=== PATIENT | male | born 1985 | race Caucasian/White ===

== ENCOUNTER 2017-12-01 06:36 | Emergency (ER) | payer OTHER ==
[~2017-12-01] VITALS: Ht 165.1 cm; Wt 74.4 kg
[~2017-12-01 06:36] MED LIST: DOXY100C2 PO; NAPR-243 PO; [UNRECOGNIZED DRUG - REMARK]
--- OUTSIDE RECORDS SUMMARY | 2017-12-01 06:42 | XMS REPORT | Continuity of Care Document ---
Author Author [facility] [place] Address Unknown Phone Unavailable Allergies Active Description Code Type Severity Reaction Onset Reported/Identified Relationship to Patient Clinical Status Yes Augmentin Drug Allergy N/A N/A 12/31/2008 Yes lidocaine Drug Allergy N/A N/A 12/31/2008 Yes Penicillins Drug Allergy N/A N/A 12/31/2008 Yes Augmentin Drug Allergy 12/31/2008 Yes lidocaine Drug Allergy 12/31/2008 Yes Penicillins Drug Allergy 12/31/2008 Yes Amoxicillin Drug Allergy N/A N/A 03/13/2014 Medications There is no data. 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 Encounters ACCT No. Visit Date/Time Discharge Status Pt. Type Provider Facility Loc./Unit Complaint [id number] 03/13/2014 11:46:00 03/13/2014 23:59:59 CLS Outpatient BRUCE RITTER APRN [id number] 02/28/2012 11:36:00 02/28/2012 23:59:59 CLS Outpatient
--- OUTSIDE RECORDS SUMMARY | 2017-12-01 06:42 | XMS REPORT | Clinical Summary ---
Author Author [facility] Organization [facility] Address Unknown Phone Unavailable Care Team Providers Care Compass Operator Name Role Phone Doctor, Miscellaneous Unavailable Unavailable Vito Rm MD Unavailable Elvia Correa DO PCP Spencer Moses MD Unavailable Michael Goff MD Unavailable Source Comments Some departments are not documenting in the electronic medical record. If you do not see the information that you expected, contact Release of Information in the Health Information Management department at [phone] for further assistance in locating additional records.[facility] Allergies Active Allergy Reactions Severity Noted Date Comments Amoxicillin-Pot RASH Medium 01/04/2012 Clavulanate Lidocaine RASH Medium 01/04/2012 Penicillins RASH Medium 01/04/2012 Current Medications Prescription Sig. Disp. Refills Start End Date Status Date traMADol (ULTRAM) 50 mg Take 1 Tab by mouth every 30 Tab 0 03/25/20 Active tablet 4 hours as needed for 16 Pain for up to 30 doses. 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 Quit 3 years ago. Sex Assigned at Date Recorded Not on file Last Filed Vital Signs Vital Sign Reading Time Taken Blood Pressure 114/83 03/25/2016 10:45 AM CDT Pulse 98 03/25/2016 10:45 AM CDT Temperature 36.5 C (97.7 F) 03/25/2016 10:45 AM CDT Respiratory Rate - - Oxygen Saturation 96% 03/25/2016 10:45 AM CDT Inhaled Oxygen - - Concentration Weight 72.6 kg (160 lb) 03/23/2016 6:08 PM CDT Height 167.6 cm (5' 6") 03/23/2016 6:08 PM CDT Body Mass Index 25.82 03/23/2016 6:08 PM CDT Plan of Treatment Health Maintenance Due Date Last Done Comments PHYSICAL (COMPREHENSIVE) 12/20/1990 EXAM PERTUSSIS VACCINE 12/20/1994 TETANUS VACCINE 12/20/2000 INFLUENZA VACCINE 04/26/2018 Results Not on filefrom Last 3 Months
--- OUTSIDE RECORDS SUMMARY | 2017-12-01 06:42 | XMS REPORT ---
Author KRISS Heck [facility] [employer] Address Unknown Phone Unavailable Care Team Providers Care Senior Software Analyst Name Role Phone KRISS KNIGHT CP Unavailable Allergies No Known Allergies Problems Problem Type Condition Code Onset Dates Condition Status Problem Hx of hemolytic anemia Z86.2 Active Problem Iron overload syndrome E83.19 Active Problem Pyruvate kinase deficiency D55.8 Active Problem Calculus of gallbladder without mention of cholecystitis or obstruction 574.20 Active Medications No Known Medications Results No Known Results Summary Purpose eClinicalWorks Submission
[2017-12-01 07:31] LABS: CLARITY,URINE CLEAR; COLOR,URINE AMBER; GLUCOSE, URINE (UA) NEGATIVE (NEGATIVE); KETONES,URINE NEGATIVE (NEGATIVE); LEUKOCYTE ESTERASE ,URINE 1+ (NEGATIVE); NITRITE,URINE NEGATIVE (NEGATIVE); PH,URINE 6 (5-9); PROTEIN,URINE NEGATIVE (NEGATIVE); UROBILINOGEN,URINE 1 MG/DL (NORMAL)
--- NOTE | 2017-12-01 07:35 | ED General ---
General Chief Complaint: Eye Problems Stated Complaint: HAVING TROUBLE SEEING Nursing Triage Note: double vision Nursing Sepsis Screen: No Definite Risk Source of Information: Patient Exam Limitations: No Limitations History of Present Illness Date Seen by Provider: Dec 01, 2017 Time Seen by Provider: 07:35 Initial Comments The patient is a 31-year-old white male who presents with complaints of visual aberration. An example of that would be seeing chairs moving up and down. He was seen to walk in to the ER. He had a wide-based gait and seemed unsteady. His mother offered a guiding hand. He reports that if he closes either eye he does not see the double vision. Timing/Duration: 1-3 Hours, Other Allergies and Home Medications Allergies Coded Allergies: amoxicillin (Unverified Allergy, Intermediate, 12/31/08) lidocaine (Unverified Allergy, Intermediate, 12/31/08) potassium clavulanate (Unverified Allergy, Intermediate, 12/31/08) Penicillins (Unverified Allergy, Mild, 12/31/08) Home Medications No Active Prescriptions or Reported Meds Patient Home Medication List Home Medication List Reviewed: Yes Constitutional: see HPI, chills EENTM: no symptoms reported Respiratory: no symptoms reported Cardiovascular: no symptoms reported Gastrointestinal: no symptoms reported Genitourinary: no symptoms reported Musculoskeletal: no symptoms reported Skin: no symptoms reported Psychiatric/Neurological: No Symptoms Reported Hematologic/Lymphatic: Other (Pyruvate kinase deficiency) Immunological/Allergic: no symptoms reported Past Xwabjye-Xkhjuw-Ziprig Hx Patient Social History Alcohol Use: Denies Use Recreational Drug Use: Yes (cannibus) Smoking Status: Current Everyday Smoker Type Used: Cigarettes 2nd Hand Smoke Exposure: Yes Recent Foreign Travel: No Contact w/Someone Who Travel: No Recent Infectious Disease Expo: No Recent Hopitalizations: No Surgeries History of Surgeries: Yes (EGD, SPLEENECTOMY) Surgeries: Gallbladder Respiratory History of Respiratory Disorde: No Cardiovascular History of Cardiac Disorders: No Neurological History of Neurological Disord: No Reproductive System Hx Reproductive Disorders: No Genitourinary History of Genitourinary Disor: No Gastrointestinal History of Gastrointestinal Di: No Musculoskeletal History of Musculoskeletal Dis: No Endocrine History of Endocrine Disorders: Yes (pyruvate kinase deficiency) HEENT History of HEENT Disorders: No Cancer History of Cancer: No Psychosocial History of Psychiatric Problem: No Integumentary History of Skin or Integumenta: No Blood Transfusions History of Blood Disorders: Yes (chronic anemia, pyruvate kinase deficiency) Family Medical History Significant Family History: No Pertinent Family Hx Physical Exam Vital Signs Vital Signs - First Documented 12/01/17 06:50 Temp 97.7 Pulse 118 Resp 18 B/P (MAP) 141/104 (116) Pulse Ox 99 O2 Delivery Room Air Capillary Refill : Less Than 3 Seconds General Appearance: No Apparent Distress, WD/WN Eyes: Bilateral Eye Other (pupils equal and normal tracking) HEENT: Normal ENT Inspection Neck: Full Range of Motion, Normal Inspection, Non Tender, Supple, Carotid Bruit Respiratory: Chest Non Tender, Lungs Clear, Normal Breath Sounds, No Accessory Muscle Use, No Respiratory Distress Cardiovascular: Regular Rate, Rhythm, No Edema, No Gallop, No JVD, No Murmur, Normal Peripheral Pulses Neurologic/Psychiatric: Alert, Oriented x3, No Motor/Sensory Deficits, Normal Mood/Affect, industrial spraypainter II-XII Norm as Tested, Other (DYPLOPIA is corrected by occluding either eye) Skin: Normal Color Lymphatic: No Adenopathy Progress/Results/Core Measures Suspected Sepsis Recent Fever Within 48 Hours: No Infection Criteria Present: None New/Unexplained Altered Menta: No Sepsis Screen: No Definite Risk Sepsis Diagnosis: SIRS Temperature:97.7 Pulse: 118 Respiratory Rate: 18 Laboratory Tests 12/01/17 07:53: White Blood Count 14.6H Blood Pressure 141 /104 Mean: 116 Laboratory Tests 12/01/17 07:53: Creatinine 0.65, Platelet Count 628H, Total Bilirubin 5.0H Results/Orders Lab Results Laboratory Tests Test 12/01/17 07:22 12/01/17 07:53 Range/Units Urine Color CHITO H Urine Clarity CLEAR Urine pH 6 5-9 Urine Specific [place] 1.015 L 1.016-1.022 Urine Protein NEGATIVE NEGATIVE Urine Glucose (UA) NEGATIVE NEGATIVE Urine Ketones NEGATIVE NEGATIVE Urine Nitrite NEGATIVE NEGATIVE Urine Bilirubin 1+ H NEGATIVE Urine Urobilinogen 1 NORMAL MG/DL Urine Leukocyte Esterase 1+ H NEGATIVE Urine RBC (Auto) 1+ H NEGATIVE Urine RBC 0-2 /HPF Urine WBC 0-2 /HPF Urine Squamous Epithelial Cells NONE /HPF Urine Crystals NONE /LPF Urine Bacteria NEGATIVE /HPF Urine Casts NONE /LPF Urine Mucus MODERATE H /LPF Urine Culture Indicated NO Urine Opiates Screen POSITIVE H NEGATIVE Urine Oxycodone Screen NEGATIVE NEGATIVE Urine Methadone Screen NEGATIVE NEGATIVE Urine Propoxyphene Screen NEGATIVE NEGATIVE Urine Barbiturates Screen NEGATIVE NEGATIVE Ur Tricyclic Antidepressants Screen NEGATIVE NEGATIVE Urine Phencyclidine Screen NEGATIVE NEGATIVE Urine Amphetamines Screen NEGATIVE NEGATIVE Urine Methamphetamines Screen NEGATIVE NEGATIVE Urine Benzodiazepines Screen NEGATIVE NEGATIVE Urine Cocaine Screen NEGATIVE NEGATIVE Urine Cannabinoids Screen POSITIVE H NEGATIVE White Blood Count 14.6 H 4.3-11.0 10^3/uL Red Blood Count 2.37 L 4.35-5.85 10^6/uL Hemoglobin 9.1 L 13.3-17.7 G/DL Hematocrit 28 L 40-54 % Mean Corpuscular Volume 119 H 80-99 FL Mean Corpuscular Hemoglobin 38 H 25-34 PG Mean Corpuscular Hemoglobin Concent 32 32-36 G/DL Red Cell Distribution Width 13.9 10.0-14.5 % Platelet Count 628 H 130-400 10^3/uL Mean Platelet Volume 9.1 7.4-10.4 FL Neutrophils (%) (Auto) 41 L 42-75 % Lymphocytes (%) (Auto) 39 12-44 % Monocytes (%) (Auto) 14 H 0-12 % Eosinophils (%) (Auto) 5 0-10 % Basophils (%) (Auto) 0 0-10 % Neutrophils # (Auto) 6.0 1.8-7.8 X 10^3 Lymphocytes # (Auto) 5.7 H 1.0-4.0 X 10^3 Monocytes # (Auto) 2.1 H 0.0-1.0 X 10^3 Eosinophils # (Auto) 0.7 H 0.0-0.3 10^3/uL Basophils # (Auto) 0.1 0.0-0.1 10^3/uL Neutrophils % (Manual) 42 % Lymphocytes % (Manual) 44 % Monocytes % (Manual) 6 % Eosinophils % (Manual) 5 % Basophils % (Manual) 0 % Metamyelocytes % 3 % Band Neutrophils 0 % Nucleated Red Blood Cells 3 Polychromasia MARKED Hypochromasia SLIGHT Macrocytosis MARKED Target Cells MODERATE Ki Cells MODERATE Sodium Level 138 135-145 MMOL/L Potassium Level 3.8 3.6-5.0 MMOL/L Chloride Level 109 H 98-107 MMOL/L Carbon Dioxide Level 24 21-32 MMOL/L Anion Gap 5 5-14 MMOL/L Blood Urea Nitrogen 10 7-18 MG/DL Creatinine 0.65 0.60-1.30 MG/DL Estimat Glomerular Filtration Rate > 60 BUN/Creatinine Ratio 15 Glucose Level 98 70-105 MG/DL Calcium Level 8.6 8.5-10.1 MG/DL Total Bilirubin 5.0 H 0.1-1.0 MG/DL Aspartate Amino Transf (AST/SGOT) 30 5-34 U/L Alanine Aminotransferase (ALT/SGPT) 55 0-55 U/L Alkaline Phosphatase 79 40-136 U/L Total Protein 6.7 6.4-8.2 GM/DL Albumin 4.1 3.2-4.5 GM/DL Serum Alcohol < 10 <10 MG/DL My Orders Orders - QUINN CLEVELAND MD Cbc With Automated Diff (12/01/17 06:59) Comprehensive Metabolic Panel (12/01/17 06:59) Drug Screen Stat (Urine) (12/01/17 06:59) Ua Culture If Indicated (12/01/17 06:59) Alcohol (12/01/17 07:44) Manual Differential (12/01/17 07:53) Ct Head Wo (12/01/17 08:50) Vital Signs/I&O Vital Sign - Last 12Hours 12/01/17 06:50 Temp 97.7 Pulse 118 Resp 18 B/P (MAP) 141/104 (116) Pulse Ox 99 O2 Delivery Room Air Capillary Refill : Less Than 3 Seconds Blood Pressure Mean: 116 Departure Communication (Admissions) Progress Notes ct SCAN SHOWED NO ABNORMALITIES. Impression Impression: Primary Impression: Diplopia Disposition: 01 HOME, SELF-CARE Condition: Stable/Unchanged Departure-Patient Inst. Decision time for Depature: 09:37 Referrals: KRISS KNIGHT DO (PCP/Family) Primary Care Physician Add. Discharge Instructions: All discharge instructions reviewed with patient and/or family. Voiced understanding. Occluded one EYE for the purposes of walking and safety. See an middle school football coach for eye exam and further advise Scripts No Active Prescriptions or Reported Meds QUINN CLEVELAND MD Dec 01, 2017 07:35
[2017-12-01 07:43] LABS: AMPHETAMINE SCREEN, URINE NEGATIVE (NEGATIVE); BARBITURATE SCREEN URINE NEGATIVE (NEGATIVE); BENZODIAZEPINES SCREEN URINE NEGATIVE (NEGATIVE); CANNABINOID SCREEN, URINE POSITIVE (NEGATIVE); COCAINE SCREEN URINE NEGATIVE (NEGATIVE); METHADONE STAT NEGATIVE (NEGATIVE); METHAMPHETAMINE SCREEN URINE S NEGATIVE (NEGATIVE); OPIATE SCREEN URINE POSITIVE (NEGATIVE); OXYCODONE STAT NEGATIVE (NEGATIVE); PROPOXYPHENE STAT NEGATIVE (NEGATIVE); TRICYCLIC ANTIDEPRESSANTS SCRE NEGATIVE (NEGATIVE)
[2017-12-01 07:49] LABS: BACTERIA,URINE NEGATIVE /HPF; BILIRUBIN,URINE 1+ (NEGATIVE); RBC,URINE 0-2 /HPF; WBC,URINE 0-2 /HPF
[2017-12-01 08:04] LABS: BASOPHILS # (AUTO) 0.1 10^3/uL (0.0-0.1); BASOPHILS % (AUTO) 0 % (0-10); EOSINOPHILS # (AUTO) 0.7 10^3/uL (0.0-0.3); EOSINOPHILS % (AUTO) 5 % (0-10); HEMATOCRIT 28 % (40-54); HEMOGLOBIN 9.1 G/DL (13.3-17.7); LYMPHOCYTES # (AUTO) 5.7 X 10^3 (1.0-4.0); LYMPHOCYTES % (AUTO) 39 % (12-44); MEAN CORPUSCULAR HEMOGLOBIN 38 PG (25-34); MEAN CORPUSCULAR HGB CONC 32 G/DL (32-36); MEAN CORPUSCULAR VOLUME 119 FL (80-99); MEAN PLATELET VOLUME 9.1 FL (7.4-10.4); MONOCYTES # (AUTO) 2.1 X 10^3 (0.0-1.0); MONOCYTES % (AUTO) 14 % (0-12); NEUTROPHILS % (AUTO) 41 % (42-75); PLATELET COUNT 628 10^3/uL (130-400); RED BLOOD COUNT 2.37 10^6/uL (4.35-5.85); RED CELL DISTRIBUTION WIDTH 13.9 % (10.0-14.5); WHITE BLOOD COUNT 14.6 10^3/uL (4.3-11.0)
[2017-12-01 08:27] LABS: BAND NEUTROPHILS 0 %; BASOPHILS % (MANUAL) 0 %; EOSINOPHILS % (MANUAL) 5 %; LYMPHOCYTES % (MANUAL) 44 %; METAMYELOCYTES % 3 %; MONOCYTES % (MANUAL) 6 %; NEUTROPHILS % (MANUAL) 42 %; NUCLEATED RED BLOOD CELLS 3
[2017-12-01 08:28] LABS: BURR CELLS MODERATE; HYPOCHROMASIA SLIGHT; POLYCHROMASIA MARKED; TARGET CELLS MODERATE
[2017-12-01 08:30] LABS: ALANINE AMINOTRANSFERASE 55 U/L (0-55); ALBUMIN 4.1 GM/DL (3.2-4.5); ALKALINE PHOSPHATASE 79 U/L (40-136); BUN/CREATININE RATIO 15; CALCIUM 8.6 MG/DL (8.5-10.1); CARBON DIOXIDE 24 MMOL/L (21-32); CHLORIDE 109 MMOL/L (98-107); CREATININE SERUM 0.65 MG/DL (0.60-1.30); GFR ESTIMATED > 60; GLUCOSE 98 MG/DL (70-105); POTASSIUM 3.8 MMOL/L (3.6-5.0); SODIUM 138 MMOL/L (135-145); TOTAL PROTEIN 6.7 GM/DL (6.4-8.2)
--- NOTE | 2017-12-01 09:06 | Diagnostic Imaging Report ---
PROCEDURE: CT head without contrast. TECHNIQUE: Multiple contiguous axial images were obtained through the brain without the use of intravenous contrast. INDICATION: Visual problems and dizziness. COMPARISON: No prior CT study is available for comparison. The ventricles and sulci are within normal limits. No sulcal effacement, midline shift or hemorrhage is detected. The cisterns are patent. The visualized paranasal sinuses are clear apart from very minimal mucosal thickening in the left maxillary sinus. IMPRESSION: No acute intracranial process is detected. Dictated by: Dictated on workstation # [id number]
[2017-12-01 10:14] VITALS: BP 122/84
== END 2017-12-01 10:16 | disposition home or self-care (01) ==
LOC: EDUNIT# 06:36 → ER 06:39
DX: H53.2 Diplopia (principal); F17.210 Nicotine dependence, cigarettes, uncomplicated; F12.10 Cannabis abuse, uncomplicated; Z88.1 Allergy status to other antibiotic agents; Z88.0 Allergy status to penicillin; Z88.8 Allergy status to other drugs, medicaments and biological substances; Z90.81 Acquired absence of spleen; Z88.6 Allergy status to analgesic agent
CPT/HCPCS: 36415; 70450; 80053; 80306; 80320; 81000; 85007; 85027

== ENCOUNTER → 2018-01-25 | Outpatient (CLI) | payer OTHER ==
--- NOTE | 2018-01-25 10:05 | Diagnostic Imaging Report ---
INDICATION: Hemachromatosis. TECHNIQUE: Multiple Real-time grayscale images were obtained over the right upper quadrant in various projections. FINDINGS: The liver is normal in size at 15 cm. There is parenchymal heterogeneity but no discrete liver mass is identified. The gallbladder is surgically absent. No biliary ductal dilatation is seen. The pancreas is obscured by bowel gas. The right kidney is unremarkable. There is no ascites. IMPRESSION: Liver parenchymal heterogeneity. No discrete liver mass is identified. Dictated by: Dictated on workstation # [id number]
== END ==
LOC: RAD 08:35
PROVIDERS: ATTEND Internal Medicine Hematology & Oncology
DX: R93.2 Abnormal findings on diagnostic imaging of liver and biliary tract (principal); E83.119 Hemochromatosis, unspecified; R79.89 Other specified abnormal findings of blood chemistry; R17 Unspecified jaundice
CPT/HCPCS: 76705

== ENCOUNTER 2018-02-17 08:48 | Outpatient (RCR) | payer OTHER ==
[2018-01-20 08:53] LABS: BASOPHILS # (AUTO) 0.1 10^3/uL (0.0-0.1); BASOPHILS % (AUTO) 1 % (0-10); EOSINOPHILS # (AUTO) 0.8 10^3/uL (0.0-0.3); EOSINOPHILS % (AUTO) 3 % (0-10); HEMATOCRIT 29 % (40-54); HEMOGLOBIN 9.2 G/DL (13.3-17.7); LYMPHOCYTES # (AUTO) 9.7 X 10^3 (1.0-4.0); LYMPHOCYTES % (AUTO) 43 % (12-44); MEAN CORPUSCULAR HEMOGLOBIN 38 PG (25-34); MEAN CORPUSCULAR HGB CONC 32 G/DL (32-36); MEAN CORPUSCULAR VOLUME 119 FL (80-99); MEAN PLATELET VOLUME 9.4 FL (7.4-10.4); MONOCYTES # (AUTO) 2.5 X 10^3 (0.0-1.0); MONOCYTES % (AUTO) 11 % (0-12); NEUTROPHILS # (AUTO) 9.6 X 10^3 (1.8-7.8); NEUTROPHILS % (AUTO) 43 % (42-75); PLATELET COUNT 649 10^3/uL (130-400); RED BLOOD COUNT 2.44 10^6/uL (4.35-5.85); RED CELL DISTRIBUTION WIDTH 13.8 % (10.0-14.5); WHITE BLOOD COUNT 22.6 10^3/uL (4.3-11.0)
[2018-01-20 09:14] LABS: PROTHROMBIN TIME PATIENT 12.9 SEC (12.2-14.7)
[2018-01-20 09:18] LABS: SMEAR SCAN COMMENT YES
[2018-01-20 09:19] LABS: ALANINE AMINOTRANSFERASE 57 U/L (0-55); ALBUMIN 4.6 GM/DL (3.2-4.5); ALKALINE PHOSPHATASE 79 U/L (40-136); BILIRUBIN,TOTAL 4.5 MG/DL (0.1-1.0); BUN/CREATININE RATIO 26; CARBON DIOXIDE 22 MMOL/L (21-32); CHLORIDE 108 MMOL/L (98-107); CREATININE SERUM 0.69 MG/DL (0.60-1.30); GFR ESTIMATED > 60; GLUCOSE 98 MG/DL (70-105); POTASSIUM 3.9 MMOL/L (3.6-5.0); SODIUM 139 MMOL/L (135-145); TOTAL PROTEIN 7.3 GM/DL (6.4-8.2)
[2018-02-17 08:59] LABS: BASOPHILS # (AUTO) 0.1 10^3/uL (0.0-0.1); BASOPHILS % (AUTO) 0 % (0-10); EOSINOPHILS % (AUTO) 5 % (0-10); HEMATOCRIT 28 % (40-54); HEMOGLOBIN 8.6 G/DL (13.3-17.7); LYMPHOCYTES % (AUTO) 47 % (12-44); MEAN CORPUSCULAR HEMOGLOBIN 37 PG (25-34); MEAN CORPUSCULAR HGB CONC 31 G/DL (32-36); MEAN CORPUSCULAR VOLUME 122 FL (80-99); MEAN PLATELET VOLUME 9.4 FL (7.4-10.4); MONOCYTES # (AUTO) 2.3 X 10^3 (0.0-1.0); MONOCYTES % (AUTO) 11 % (0-12); NEUTROPHILS # (AUTO) 7.9 X 10^3 (1.8-7.8); NEUTROPHILS % (AUTO) 37 % (42-75); PLATELET COUNT 622 10^3/uL (130-400); RED CELL DISTRIBUTION WIDTH 13.9 % (10.0-14.5); WHITE BLOOD COUNT 21.3 10^3/uL (4.3-11.0)
[2018-02-17 09:20] LABS: ALANINE AMINOTRANSFERASE 50 U/L (0-55); ALBUMIN 4.3 GM/DL (3.2-4.5); ALKALINE PHOSPHATASE 68 U/L (40-136); BILIRUBIN,TOTAL 4.3 MG/DL (0.1-1.0); BUN/CREATININE RATIO 18; CALCIUM 8.9 MG/DL (8.5-10.1); CARBON DIOXIDE 21 MMOL/L (21-32); CHLORIDE 109 MMOL/L (98-107); CREATININE SERUM 0.72 MG/DL (0.60-1.30); GFR ESTIMATED > 60; GLUCOSE 98 MG/DL (70-105); POTASSIUM 3.5 MMOL/L (3.6-5.0); SODIUM 138 MMOL/L (135-145); TOTAL PROTEIN 6.8 GM/DL (6.4-8.2)
[2018-02-17 09:27] LABS: SMEAR SCAN COMMENT YES
[2018-03-03 08:56] LABS: BASOPHILS # (AUTO) 0.2 10^3/uL (0.0-0.1); BASOPHILS % (AUTO) 1 % (0-10); EOSINOPHILS # (AUTO) 0.9 10^3/uL (0.0-0.3); EOSINOPHILS % (AUTO) 4 % (0-10); HEMATOCRIT 25 % (40-54); LYMPHOCYTES # (AUTO) 11.2 X 10^3 (1.0-4.0); LYMPHOCYTES % (AUTO) 50 % (12-44); MEAN CORPUSCULAR HEMOGLOBIN 38 PG (25-34); MEAN CORPUSCULAR HGB CONC 32 G/DL (32-36); MEAN CORPUSCULAR VOLUME 120 FL (80-99); MEAN PLATELET VOLUME 9.7 FL (7.4-10.4); MONOCYTES # (AUTO) 2.4 X 10^3 (0.0-1.0); MONOCYTES % (AUTO) 11 % (0-12); NEUTROPHILS # (AUTO) 7.7 X 10^3 (1.8-7.8); NEUTROPHILS % (AUTO) 34 % (42-75); PLATELET COUNT 599 10^3/uL (130-400); RED BLOOD COUNT 2.11 10^6/uL (4.35-5.85); RED CELL DISTRIBUTION WIDTH 14.1 % (10.0-14.5)
[2018-03-03 09:17] LABS: SMEAR SCAN COMMENT YES; WHITE BLOOD COUNT 20.6 10^3/uL (4.3-11.0)
== END 2018-03-03 11:00 | disposition home or self-care (01) ==
LOC: ONC 08:48
PROVIDERS: ATTEND Internal Medicine Hematology & Oncology
DX: D55.2 Anemia due to disorders of glycolytic enzymes (principal); E88.89 Other specified metabolic disorders; R79.89 Other specified abnormal findings of blood chemistry; D72.820 Lymphocytosis (symptomatic); D72.821 Monocytosis (symptomatic); F17.210 Nicotine dependence, cigarettes, uncomplicated
CPT/HCPCS: 36415; 80053; 81206; 81270; 82728; 83540; 85025; 85610; 85730; 99195; 99213

== ENCOUNTER 2018-03-03 11:05 | Outpatient (RCR) | payer SELFPAY | END 2018-06-01 | disposition home or self-care (01) | LOC: ONC 11:05 | PROVIDERS: ATTEND Internal Medicine Hematology & Oncology | DX: D55.2 Anemia due to disorders of glycolytic enzymes (principal); E88.89 Other specified metabolic disorders; R79.89 Other specified abnormal findings of blood chemistry; D72.820 Lymphocytosis (symptomatic); D72.821 Monocytosis (symptomatic); F17.210 Nicotine dependence, cigarettes, uncomplicated | CPT/HCPCS: 36415; 99195 ==